=== PATIENT | female | born 1990 | race Caucasian/White ===

== ENCOUNTER 2017-10-24 22:18 | Emergency (ER) | payer BC ==
[2017-10-24] MEDS ORDERED: Penicillin V Potassium 250 MG Tab PO ONE ×2 (22:19→22:46)
--- NOTE | 2017-10-24 22:27 | EDM.PDOC ---
ED HPI GENERAL MEDICAL PROBLEM - General Chief Complaint: ENT Problem Stated Complaint: STREP [id number] Time Seen by Provider: 10/24/17 22:26 Source of Information: Reports: Patient, RN, RN Notes Reviewed History Limitations: Reports: No Limitations - History of Present Illness INITIAL COMMENTS - FREE TEXT/NARRATIVE: Pt presents to the ER with c/o of sore throat that has progressively getting worse. She states she is unable to eat or swallow anything at this point. She states her and child were both diagnosed with Strep throat and medicated. She states she has had a fever and chills. Denies ear pain, congestion, N/V/D, CP, SOB. Pt states she took some of her husbands penicillin yesterday. Onset: Gradual Throat Pain Score (Numeric/FACES): 8 - Related Data Allergies Allergy/AdvReac Type Severity Reaction Status Date / Time cefaclor [Cefaclor] Allergy Other Verified 10/24/17 22:26 Home Meds: Home Meds Cholecalciferol (Vitamin D3) [Vitamin D3] 1 tab PO DAILY 10/24/17 [History] FLUoxetine HCl [Fluoxetine HCl] 20 mg PO DAILY 10/24/17 [History] Multivit with Min #53/FA/K/Q10 [Dekas Plus Softgel] 1 tab PO DAILY 10/24/17 [ History] Past Medical History - Past Health History Medical/Surgical History: Denies Medical/Surgical History Social & Family History - Tobacco Use Smoking Status *Q: Former Smoker Years of Tobacco use: 14 Used Tobacco, but Quit: No Second Hand Smoke Exposure: No - Alcohol Use Days Per Week of Alcohol Use: 0 - Recreational Drug Use Recreational Drug Use: No ED ROS ENT - Review of Systems Review Of Systems: ROS reveals no pertinent complaints other than HPI. ED EXAM, ENT - Physical Exam Exam: See Below Exam Limited By: No Limitations General Appearance: Alert, WD/WN, Mild Distress Eye Exam: Bilateral Eye: EOMI, Normal Inspection Ears: Normal External Exam, Normal Canal, Hearing Grossly Normal, Normal TMs Nose: Normal Inspection, Normal Mucousa, No Blood Mouth/Throat: Normal Lips, Normal Teeth, Tonsillar Erythema, Tonsillar Exudates (right tonsil has white and green exudate/ulceration, dime sized), Tonsillar Swelling (+2-3) Head: Atraumatic, Normocephalic Neck: Supple, Full Range of Motion, Lymphadenopathy (L), Lymphadenopathy (R) Respiratory/Chest: No Respiratory Distress, Lungs Clear, Normal Breath Sounds, No Accessory Muscle Use, Chest Non-Tender Cardiovascular: Normal Peripheral Pulses, Regular Rate, Rhythm, No Edema, No Gallop, No JVD, No Murmur, No Rub GI/Abdominal: Normal Bowel Sounds, Soft, Non-Tender, No Organomegaly, No Distention, No Abnormal Bruit, No Mass (Female) Exam: Deferred Rectal (Female) Exam: Deferred Back: Normal Inspection, Full Range of Motion Extremities: Normal Inspection, Normal Range of Motion, Non-Tender, No Pedal Edema, Normal Capillary Refill Neurological: Alert, Oriented, CN II-XII Intact, Normal Cognition, Normal Gait, Normal Reflexes, No Motor/Sensory Deficits Psychiatric: Normal Affect, Normal Mood Skin: Warm, Dry, Intact, Normal Color, No Rash Lymphatic: Adenopathy (Bilateral anterior cervical) Course - Vital Signs Last Recorded V/S: Last Vital Signs Temp 98.7 F 10/24/17 22:35 Pulse 117 H 10/24/17 22:35 Resp 18 10/24/17 22:35 BP 152/94 H 10/24/17 22:35 Pulse Ox 98 10/24/17 22:35 - Orders/Labs/Meds Orders: Active Orders 24 hr Category Date Time Status CULTURE STREP A CONFIRMATION [] Stat Lab 10/24/17 22:22 Results STREP SCRN A RAPID W CULT CONF [] Stat Lab 10/24/17 22:22 Results Labs: Rapid Strep: Negative Meds: Medications Discontinued Medications Generic Name Dose Route Start Last Admin Trade Name Valente PRN Reason Stop Dose Admin Lidocaine HCl 20 ml 10/24/17 22:48 10/24/17 22:59 Xylocaine 2% Viscous PO 10/24/17 22:49 Not Given ONETIME ONE Penicillin V Potassium 500 mg 10/24/17 22:46 10/24/17 22:55 Veetids PO 10/24/17 22:47 Not Given Q8H ONE Penicillin V Potassium Confirm 10/24/17 22:52 10/24/17 22:55 Veetids Administered 10/24/17 22:53 500 mg Dose Administration 500 mg .ROUTE .STK-MED ONE Departure - Departure Time of Disposition: 22:50 Disposition: Home, Self-Care 01 Condition: Fair Clinical Impression: Tonsillitis - Discharge Information Instructions: Tonsillitis, [id number], Sore Throat, Jnxl-oy-Noyc Forms: ED Department Discharge Additional Instructions: RX: Penicillin V Potassium, Viscous lidocaine Drink plenty of water Follow up with your primary care facility for a recheck of your throat and tonsils - My Orders Last 24 Hours: My Active Orders 10/24/17 22:22 CULTURE STREP A CONFIRMATION [RM] Stat STREP SCRN A RAPID W CULT CONF [] Stat - Assessment/Plan Last 24 Hours: My Active Orders 10/24/17 22:22 CULTURE STREP A CONFIRMATION [RM] Stat STREP SCRN A RAPID W CULT CONF [] Stat
[2017-10-24] MEDS ORDERED: Lidocaine 2% Viscous Solution 100 ML Bottle PO ONE (22:48)
[2017-10-24] MEDS ORDERED: Penicillin V Potassium 250 MG Tab ONE (22:52)
== END 2017-10-24 23:05 | disposition home or self-care (01) ==
LOC: DL.ED 22:18
DX: J03.90 Acute tonsillitis, unspecified (principal); Z88.1 Allergy status to other antibiotic agents; Z79.899 Other long term (current) drug therapy; Z87.891 Personal history of nicotine dependence
CPT/HCPCS: 87081; 87430; 99282; A9270

== ENCOUNTER 2017-12-03 12:23 | Emergency (ER) | payer BC ==
[2017-12-03] MEDS ORDERED: Rabies Vaccine, Human Diploid Cell PF 2.5 Unit SDV IM ONE (13:51)
[2017-12-03] MEDS ORDERED: Rabies Immune Globulin PF 150 Units/ML 10 ML SDV IM ONE (13:51)
--- NOTE | 2017-12-03 13:59 | EDM.PDOC ---
ED HPI GENERAL MEDICAL PROBLEM - General Chief Complaint: Bite:Animal, Insect Stated Complaint: RABIES SHOT [id number] Time Seen by Provider: 12/03/17 13:50 Source of Information: Reports: Patient History Limitations: Reports: No Limitations - History of Present Illness INITIAL COMMENTS - FREE TEXT/NARRATIVE: This 27 yo female patient was sent to the ED from the [facility] due to a cat bite. The patient reports that she was bitten by a family cat yesterday in the left inner thigh. The patient reports that the cat is not current with it's vaccinations. The cat has changed it's behavior. The cat is currently locked in a room in her home. The patient reports she also has 2 children at home. Onset Date: 12/02/17 Duration: Constant Location: Reports: Lower Extremity, Left Quality: Reports: Ache, Throbbing Severity: Moderate Improves with: Reports: None Worsens with: Reports: None Associated Symptoms: Reports: No Other Symptoms Left Upper Leg Pain Score (Numeric/FACES): 6 - Related Data Allergies Allergy/AdvReac Type Severity Reaction Status Date / Time cefaclor [Cefaclor] Allergy Other Verified 12/03/17 13:24 Home Meds: Home Meds Cholecalciferol (Vitamin D3) [Vitamin D3] 1 tab PO DAILY 10/24/17 [History] FLUoxetine HCl [Fluoxetine HCl] 20 mg PO DAILY 10/24/17 [History] Multivit with Min #53/FA/K/Q10 [Dekas Plus Softgel] 1 tab PO DAILY 10/24/17 [ History] Amoxicillin/Clavulanate K [Augmentin 500-125 MG] 1 tab PO BID 12/03/17 [History] Control Pill 12/03/17 [History] Past Medical History - Past Health History Medical/Surgical History: Denies Medical/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 Musculoskeletal History: Reports: Back Pain, Chronic Psychiatric History: Reports: Anxiety, Depression - Infectious Disease History Infectious Disease History: Reports: Chicken Pox, RSV Social & Family History - Family History Family Medical History: Noncontributory - Tobacco Use Smoking Status *Q: Never Smoker - Caffeine Use Caffeine Use: Reports: Coffee, Soda - Recreational Drug Use Recreational Drug Use: No ED ROS GENERAL - Review of Systems Review Of Systems: ROS reveals no pertinent complaints other than HPI. ED EXAM, ANIMAL BITE - Physical Exam Exam: See Below Exam Limited By: No Limitations General Appearance: Alert, WD/WN, Moderate Distress Eye Exam: Bilateral Eye: EOMI, Normal Inspection, PERRL Ears: Normal External Exam, Normal Canal, Hearing Grossly Normal, Normal TMs Nose: Normal Inspection, Normal Mucosa, No Blood Throat/Mouth: Normal Inspection, Normal Lips, Normal Teeth, Normal Gums, Normal Oropharynx, Normal Voice, No Airway Compromise Head: Atraumatic, Normocephalic Neck: Normal Inspection, Supple, Non-Tender, Full Range of Motion Respiratory/Chest: No Respiratory Distress, Lungs Clear, Normal Breath Sounds, No Accessory Muscle Use, Chest Non-Tender Cardiovascular: Normal Peripheral Pulses, Regular Rate, Rhythm, No Edema, No Gallop, No JVD, No Murmur, No Rub GI/Abdominal: Normal Bowel Sounds, Soft, Non-Tender, No Organomegaly, No Distention, No Abnormal Bruit, No Mass (Female) Exam: Deferred Rectal (Female) Exam: Deferred Back Exam: Normal Inspection, Full Range of Motion, NT Extremities: Other (The patient has a cat bite on on her left lower inner thigh) Neurological: Alert, Oriented, CN II-XII Intact, Normal Cognition, Normal Gait, Normal Reflexes, No Motor/Sensory Deficits Psychiatric: Normal Affect, Normal Mood Skin Exam: Warm/Dry, DRY, I, Normal Color, NR Lymphatic: No Adenopathy Course - Vital Signs Last Recorded V/S: Last Vital Signs Temp 36.4 C 12/03/17 13:25 Pulse 91 12/03/17 13:25 Resp 16 12/03/17 13:25 BP 155/89 H 12/03/17 13:25 Pulse Ox 99 12/03/17 13:25 - Orders/Labs/Meds Orders: Active Orders 24 hr Category Date Time Status Vaccines to be Administered [RC] PER UNIT ROUTINE Care 12/03/17 13:52 Ordered Meds: Medications Discontinued Medications Generic Name Dose Route Start Last Admin Trade Name Freq PRN Reason Stop Dose Admin Rabies Immune Globulin 2,000 unit 12/03/17 13:51 Hyperrab S/D IM 12/03/17 13:52 ONETIME ONE Rabies Vaccine Human Diploid Cell 2.5 unit 12/03/17 13:51 Imovax Rabies IM 12/03/17 13:52 .ONCE ONE Departure - Departure Time of Disposition: 13:54 Disposition: Home, Self-Care 01 Condition: Fair Clinical Impression: Rabies, need for prophylactic vaccination against Cat bite Qualifiers: Encounter type: initial encounter Qualified Code(s): W55.01XA - Bitten by cat, initial encounter - Discharge Information Instructions: Animal Bite, Ohyg-gc-Gfie Care Plan Goals: The patient was advised of the examination results during the visit. The patient was given the RIG injections while in the ED. The patient was also given the first dose of the rabies vaccination. The patient should return for additional vaccination doses on day 3 (12/03/17), day 7 (12/10/17), day 14 () and day 28 (12/31/17). The patient was encouraged to continue to take the Augmentin as prescribed. The patient should be evaluated for further antibiotic doses after the completion of her current prescription for Augmentin is gone. If the patient has any additional symptoms or concerns, the patient should visit her primary care facility or return to the emergency department. - My Orders Last 24 Hours: My Active Orders 12/03/17 13:52 Vaccines to be Administered [RC] PER UNIT ROUTINE - Assessment/Plan Last 24 Hours: My Active Orders 12/03/17 13:52 Vaccines to be Administered [RC] PER UNIT ROUTINE
== END 2017-12-03 15:11 | disposition home or self-care (01) ==
LOC: DL.ED 12:23
DX: S71.152A Open bite, left thigh, initial encounter (principal); Z88.8 Allergy status to other drugs, medicaments and biological substances; Z79.899 Other long term (current) drug therapy; W55.01XA Bitten by cat, initial encounter
CPT/HCPCS: 90375; 90675; 96372; 99283

== ENCOUNTER 2021-03-09 16:42 | Emergency (ER) | payer BC ==
[2021-03-09 18:20] LABS: CORONAVIRUS COVID-19 NAA NEGATIVE (NEGATIVE)
--- NOTE | 2021-03-09 18:48 | EDM.PDOC ---
ED HPI GENERAL MEDICAL PROBLEM - General Chief Complaint: General Stated Complaint: HAS COVID, PT 98.1* FATIGUE, BODY ACHES, Time Seen by Provider: 03/09/21 18:35 Source of Information: Reports: Patient History Limitations: Reports: No Limitations - History of Present Illness INITIAL COMMENTS - FREE TEXT/NARRATIVE: This 30 yo female patient reports to the ED with body aches and fatigue. The patient reports her tested positive for COVID on . The patient reports she has also had some generalized body ache. Onset: Gradual Duration: Day(s): Location: Reports: Other Quality: Reports: Pressure Severity: Mild Improves with: Reports: None Worsens with: Reports: None Associated Symptoms: Reports: Shortness of Breath Generalized Pain Score (Numeric/FACES): 5 - Related Data Allergies Allergy/AdvReac Type Severity Reaction Status Date / Time cefaclor [Cefaclor] Allergy Other Verified 03/09/21 17:49 Home Meds: Home Meds Cholecalciferol (Vitamin D3) [Vitamin D3] 1 tab PO DAILY 10/24/17 [History] FLUoxetine HCl [Fluoxetine HCl] 20 mg PO DAILY 10/24/17 [History] Multivit with Min #53/FA/K/Q10 [Dekas Plus Softgel] 1 tab PO DAILY 10/24/17 [History] Amoxicillin/Clavulanate K [Augmentin 500-125 MG] 1 tab PO BID 12/03/17 [History] Control Pill 12/03/17 [History] Past Medical History - Past Health History Medical/Surgical History: Denies Medical/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 Musculoskeletal History: Reports: Back Pain, Chronic Psychiatric History: Reports: Anxiety, Depression - Infectious Disease History Infectious Disease History: Reports: Chicken Pox, RSV Social & Family History - Family History Family Medical History: No Pertinent Family History - Tobacco Use Tobacco Use Status *Q: Former Tobacco User Used Tobacco, but Quit: Yes Month/Year Tobacco Last Used: december 2020 - Caffeine Use Caffeine Use: Reports: Tea - Recreational Drug Use Recreational Drug Use: No ED ROS GENERAL - Review of Systems Review Of Systems: Comprehensive ROS is negative, except as noted in HPI. ED EXAM, GENERAL - Physical Exam Exam: See Below Exam Limited By: No Limitations General Appearance: Alert, WD/WN, No Apparent Distress Eye Exam: Bilateral Eye: EOMI, Normal Inspection, PERRL Ears: Normal External Exam, Normal Canal, Hearing Grossly Normal, Normal TMs Nose: Normal Inspection, Normal Mucosa, No Blood Throat/Mouth: Normal Inspection, Normal Lips, Normal Teeth, Normal Gums, Normal Oropharynx, Normal Voice, No Airway Compromise Head: Atraumatic, Normocephalic Neck: Normal Inspection, Supple, Non-Tender, Full Range of Motion Respiratory/Chest: No Respiratory Distress, Lungs Clear, Normal Breath Sounds, No Accessory Muscle Use, Chest Non-Tender Cardiovascular: Normal Peripheral Pulses, Regular Rate, Rhythm, No Edema, No Gallop, No JVD, No Murmur, No Rub GI/Abdominal: Normal Bowel Sounds, Soft, Non-Tender, No Organomegaly, No Distention, No Abnormal Bruit, No Mass (Female) Exam: Deferred Rectal (Female) Exam: Deferred Back Exam: Normal Inspection, Full Range of Motion, NT Extremities: Normal Inspection, Normal Range of Motion, Non-Tender, Normal Capillary Refill, No Pedal Edema Neurological: Alert, Oriented, CN II-XII Intact, Normal Cognition, Normal Gait, Normal Reflexes, No Motor/Sensory Deficits Psychiatric: Normal Affect, Normal Mood Skin Exam: Warm, Dry, Intact, Normal Color, No Rash Lymphatic: No Adenopathy Course - Vital Signs Last Recorded V/S: Last Vital Signs Temp 97.0 F 03/09/21 17:25 Pulse 81 03/09/21 17:25 Resp 18 03/09/21 17:25 BP 143/81 H 03/09/21 17:25 Pulse Ox 100 03/09/21 17:25 - Orders/Labs/Meds Labs: Laboratory Tests 03/09/21 Range/Units 17:35 Influenza Type A RNA Negative (NEGATIVE) Influenza Type B RNA Negative (NEGATIVE) SARS-CoV-2 RNA (GIN) Negative (NEGATIVE) Departure - Departure Time of Disposition: 18:51 Disposition: Home, Self-Care 01 Condition: Fair Clinical Impression: Viral URI - Discharge Information *PRESCRIPTION DRUG MONITORING PROGRAM REVIEWED*: Not Applicable *COPY OF PRESCRIPTION DRUG MONITORING REPORT IN PATIENT KRISTY: Not Applicable Instructions: Viral Respiratory Infection, Wbno-Ly-Glnn Care Plan Goals: The patient was advised of the examination and lab results during the visit. The patient was encouraged to continue to monitor for symptoms. The patient was advised to continue to quarantine as previously advised. The patient may take OTC medications as prescribed. If the patient has any additional symptoms or concerns, the patient should either return to the emergency department or visit her primary care facility. Sepsis Event Note (ED) - Evaluation Sepsis Screening Result: No Definite Risk - Focused Exam Vital Signs: Vital Signs Temp Pulse Resp BP Pulse Ox 03/09/21 17:25 97.0 F 81 18 143/81 H 100
== END 2021-03-09 19:10 | disposition home or self-care (01) ==
LOC: DL.ED 16:42
DX: J06.9 Acute upper respiratory infection, unspecified (principal); Z88.1 Allergy status to other antibiotic agents; Z87.891 Personal history of nicotine dependence; Z20.822 Contact with and (suspected) exposure to COVID-19
CPT/HCPCS: 0240U; 99284